=== PATIENT | female | born 1965 | race Caucasian/White ===

== ENCOUNTER 2016-12-17 09:12 | Emergency (ER) | payer BC, MEDICAID ==
[~2016-12-17] VITALS: Ht 165.1 cm; Wt 111.1 kg
[2016-12-17 09:12] VITALS: BP 123/79
== END 2016-12-17 10:15 | disposition home or self-care (01) ==
LOC: ER 09:15
DX: L73.9 Follicular disorder, unspecified (principal); E11.9 Type 2 diabetes mellitus without complications; I10 Essential (primary) hypertension; K21.9 Gastro-esophageal reflux disease without esophagitis; Z88.5 Allergy status to narcotic agent; Z88.6 Allergy status to analgesic agent; Z88.8 Allergy status to other drugs, medicaments and biological substances
CPT/HCPCS: A4606; Z7610

== ENCOUNTER 2017-03-24 22:39 | Emergency (ER) | payer BC ==
[~2017-03-24] VITALS: Ht 165.1 cm; Wt 108.9 kg
--- NOTE | 2017-03-24 22:59 | NUR ---
PT CAME FROM HOME WITH C/O CP X'S 1 MONTH, PAIN IS INTERMITANT/STABBING/NON RADIATING, PT A/O X 4, BREATING EVEN/UNLABORED, SKIN WARM/DRY/INTACT,
[2017-03-24 23:51] LABS: BASOPHILS % (AUTO) 0.8 % (0.0-2.0); EOSINOPHILS # (AUTO) 0.2 /CMM (0.0-0.7); EOSINOPHILS % (AUTO) 3.7 % (0.0-6.0); HEMATOCRIT 39 % (33-45); HEMOGLOBIN 13.3 g/dL (11.5-14.8); LYMPHOCYTES # (AUTO) 2.8 /CMM (0.8-4.8); LYMPHOCYTES % (AUTO) 43.2 % (20.0-44.0); MEAN CORPUSCULAR HEMOGLOBIN 31 PG (26.0-33.0); MEAN CORPUSCULAR HGB CONC 34 g/dl (31.0-36.0); MEAN CORPUSCULAR VOLUME 91 fL (82-100); MONOCYTES # (AUTO) 0.5 /CMM (0.1-1.30); NEUTROPHILS # (AUTO) 2.9 /CMM (1.8-8.9); NEUTROPHILS % (AUTO) 44.3 % (43.0-81.0); PLATELET COUNT (AUTO) 251 /CMM (150-450); RDW COEFFICIENT OF VARIATION 13.1 (11.5-15.0); RED BLOOD CELL COUNT(AUTO) 4.23 MIL/uL (4.0-5.2); WHITE BLOOD COUNT (AUTO) 6.5 K/uL (4.3-11.0)
[2017-03-25 00:04] LABS: CALCIUM, SERUM 9.1 mg/dL (8.5-10.1); CARBON DIOXIDE 27 mmol/L (21-32); CHLORIDE 102 mmol/L (98-107); CREATININE 0.9 mg/dL (0.6-1.3); GLUCOSE 151 mg/dL (74-106); POTASSIUM 3.6 mmol/L (3.5-5.1); SODIUM SERUM 138 mmol/L (136-145); UREA NITROGEN, BLOOD 17 mg/dL (7-18)
--- NOTE | 2017-03-25 00:05 | NUR ---
PT LYING IN BED, BREATHING UNLABORED, NAD NOTED, NO C/O PAIN AT THIS TIME
[2017-03-25 00:10] LABS: TROPONIN I < 0.017 ng/mL (0.00-0.056)
[2017-03-25 00:17] LABS: INR 0.92 (0.87-1.13); PROTHROMBIN TIME 9.6 SECS (9.5-12.7)
[2017-03-25 00:46] LABS: D-DIMER 2.04 mg/L(FEU (0.17-0.50)
[2017-03-25] MEDS ORDERED: CT SWABBABLE VALVE TRANS SET 1 EA INFUS.SET MC ONE (01:15)
[2017-03-25] MEDS ORDERED: IOHEXOL-350 100 ML VIAL IV ONE (01:15)
[2017-03-25] MEDS ORDERED: IV NS 0.9% 250 ML IV ONE (01:15)
--- NOTE | 2017-03-25 02:12 | NUR ---
PT SITTING IN BED, NAD NOTED, WAITING FOR ER MD TO REASSESS
[2017-03-25 03:16] VITALS: BP 128/87
== END 2017-03-25 03:17 | disposition home or self-care (01) ==
LOC: ER 22:41
DX: R07.9 Chest pain, unspecified (principal); E11.9 Type 2 diabetes mellitus without complications; I10 Essential (primary) hypertension; K21.9 Gastro-esophageal reflux disease without esophagitis; Z88.5 Allergy status to narcotic agent; Z90.49 Acquired absence of other specified parts of digestive tract; Z88.6 Allergy status to analgesic agent; Z88.8 Allergy status to other drugs, medicaments and biological substances
CPT/HCPCS: 36415; 71045; 71275; 80048; 84484; 84703; 85025; 85378; 85730; 93005; 99285; A4606; J7050; Q9967; Z7610

== ENCOUNTER 2017-03-26 21:53 | Emergency (ER) | payer BC ==
[~2017-03-26] VITALS: Ht 165.1 cm; Wt 108.4 kg
[2017-03-26 22:38] VITALS: BP 139/89
== END 2017-03-27 02:55 | disposition home or self-care (01) ==
LOC: ER 21:55
DX: R07.89 Other chest pain (principal); E11.9 Type 2 diabetes mellitus without complications; F41.9 Anxiety disorder, unspecified; I10 Essential (primary) hypertension; K21.9 Gastro-esophageal reflux disease without esophagitis; Z88.5 Allergy status to narcotic agent; Z88.6 Allergy status to analgesic agent; Z88.8 Allergy status to other drugs, medicaments and biological substances
CPT/HCPCS: 93005; 99283; A4606; J7030; Z7610

== ENCOUNTER 2019-10-10 10:33 | Emergency (ER) | payer BC ==
[~2019-10-10] VITALS: Ht 165.1 cm; Wt 113.4 kg
--- NOTE | 2019-10-10 10:47 | NUR ---
dr hunt at bedside for eval.
--- NOTE | 2019-10-10 10:50 | NUR ---
iv line started blood drawn and sent to lab.
[2019-10-10 10:56] LABS: BASOPHILS % (AUTO) 0.8 % (0.0-2.0); EOSINOPHILS % (AUTO) 2.8 % (0.0-6.0); HEMATOCRIT 44 % (33-45); HEMOGLOBIN 14.7 g/dL (11.5-14.8); LYMPHOCYTES # (AUTO) 1.6 /CMM (0.8-4.8); LYMPHOCYTES % (AUTO) 37.4 % (20.0-44.0); MEAN CORPUSCULAR HGB CONC 34 g/dl (31.0-36.0); MEAN CORPUSCULAR VOLUME 93 fL (82-100); MONOCYTES # (AUTO) 0.6 /CMM (0.1-1.30); MONOCYTES % (AUTO) 12.9 % (2.0-12.0); NEUTROPHILS % (AUTO) 46.1 % (43.0-81.0); PLATELET COUNT (AUTO) 231 /CMM (150-450); RED BLOOD CELL COUNT(AUTO) 4.73 MIL/uL (4.0-5.2); WHITE BLOOD COUNT (AUTO) 4.4 K/uL (4.3-11.0)
[2019-10-10 10:57] LABS: BILIRUBIN,URINE SMALL (NEGATIVE); BLOOD, URINE Small Ery/uL (NEGATIVE); COLOR,URINE Yellow (YELLOW); KETONES,URINE Negative (NEGATIVE); LEUKOCYTE ESTERASE ,URINE Small (NEGATIVE); NITRITE, URINE Negative (NEGATIVE); PH,URINE 5.5 (5.0-8.0); PROTEIN,URINE Negative (NEGATIVE); UGLUCOSE Negative (NEGATIVE); UROBILINOGEN,URINE 0.2 EU/dL (0.2)
[2019-10-10 10:59] LABS: APPEARANCE,URINE HAZY (CLEAR)
--- NOTE | 2019-10-10 11:01 | NUR ---
pt to radiology for abdominal ct scan via [facility].
[2019-10-10 11:15] LABS: ALBUMIN 3.9 g/dL (3.4-5.0); BILIRUBIN,DIRECT 0.1 mg/dL (0.0-0.2); BILIRUBIN,TOTAL 0.5 mg/dL (0.2-1.0); CALCIUM, SERUM 8.6 mg/dL (8.5-10.1); CREATININE 0.8 mg/dL (0.6-1.3); POTASSIUM 4.5 mmol/L (3.5-5.1); TOTAL PROTEIN, SERUM 9.3 g/dL (6.4-8.2)
[2019-10-10 11:28] LABS: BACTERIA,URINE Few /HPF (None Seen); SQUAMOUS EPITHELIAL CELL,UR Few /HPF (None Seen)
--- NOTE | 2019-10-10 11:58 | NUR ---
Patient discharged to home in stable condition. Written and verbal after care instructions given. Patient verbalizes understanding of instruction.IV removed. Catheter intact and site benign. Pressure and 4x4 applied to site. No bleeding noted. pt ambulatory with a steady gait
[2019-10-10 12:00] VITALS: BP 153/90
== END 2019-10-10 12:00 | disposition home or self-care (01) ==
LOC: ER 10:36
DX: N39.0 Urinary tract infection, site not specified (principal); I10 Essential (primary) hypertension; K21.9 Gastro-esophageal reflux disease without esophagitis; E11.9 Type 2 diabetes mellitus without complications; Z90.49 Acquired absence of other specified parts of digestive tract; Z98.890 Other specified postprocedural states; Z88.6 Allergy status to analgesic agent; Z88.5 Allergy status to narcotic agent; Z88.8 Allergy status to other drugs, medicaments and biological substances
CPT/HCPCS: 36415; 80048-TC; 80076-TC; 81000-TC; 83690-TC; 85025-TC; 87086-TC

== ENCOUNTER 2020-03-01 07:44 | Inpatient (IN) | payer BC ==
[~2020-03-01] VITALS: Ht 165.1 cm; Wt 112.9 kg
[2020-03-01] MEDS ORDERED: CEFTRIAXONE 1GM BAG (ER ONLY) 50 ML IV ONE ×2 (08:00→08:14)
[2020-03-01] MEDS ORDERED: AZITHROMYCIN 500 MG in IV D5W 250 ML IV ONE (08:00)
[2020-03-01] MEDS ORDERED: DEXAMETHASONE SOD PHOSPHATE 10 MG/ML VIAL IV ONE (08:00)
--- NOTE | 2020-03-01 08:00 | NUR ---
BIB SELF FROM HOME, C/O LOSS OF TASTE AND SMELL, HEADACHE, BODYACHE X8 DAYS - COUGH. VS CHECKED. AWAITING MD YING. IV ACCESS STARETD. BLOOD DRAW DONE.
[2020-03-01] MEDS ORDERED: SIMV-46 PO (08:14)
[2020-03-01] MEDS ORDERED: BENA10TA74 PO (08:14)
[2020-03-01] MEDS ORDERED: METF-442 PO (08:14)
[2020-03-01] MEDS ORDERED: OMEP20TA5 PO (08:14)
[2020-03-01] MEDS ORDERED: DEXAMETHASONE SOD PHOSPHATE 10 MG/ML VIAL ONE (08:15)
[2020-03-01 08:39] LABS: BASOPHILS % (AUTO) 0.3 % (0.0-2.0); EOSINOPHILS % (AUTO) 0.1 % (0.0-6.0); HEMATOCRIT 43 % (33-45); HEMOGLOBIN 14.4 g/dL (11.5-14.8); LYMPHOCYTES # (AUTO) 1.5 /CMM (0.8-4.8); LYMPHOCYTES % (AUTO) 27.2 % (20.0-44.0); MEAN CORPUSCULAR HGB CONC 34 g/dl (31.0-36.0); MEAN CORPUSCULAR VOLUME 92 fL (82-100); MONOCYTES # (AUTO) 0.4 /CMM (0.1-1.30); MONOCYTES % (AUTO) 7.1 % (2.0-12.0); NEUTROPHILS # (AUTO) 3.6 /CMM (1.8-8.9); NEUTROPHILS % (AUTO) 65.3 % (43.0-81.0); PLATELET COUNT (AUTO) 172 /CMM (150-450); RED BLOOD CELL COUNT(AUTO) 4.64 MIL/uL (4.0-5.2); WHITE BLOOD COUNT (AUTO) 5.6 K/uL (4.3-11.0)
[2020-03-01 08:45] LABS: CALCIUM, SERUM 8.7 mg/dL (8.5-10.1); CARBON DIOXIDE 25 mmol/L (21-32); CHLORIDE 99 mmol/L (98-107); CREATININE 0.9 mg/dL (0.6-1.3); GLUCOSE 143 mg/dL (74-106); POTASSIUM 3.8 mmol/L (3.5-5.1); SODIUM SERUM 135 mmol/L (136-145); UREA NITROGEN, BLOOD 9 mg/dL (7-18)
[2020-03-01 08:57] LABS: ALANINE AMINOTRANSFERASE 167 U/L (12-78); ALBUMIN 3.5 g/dL (3.4-5.0); ALKALINE PHOSPHATASE 54 U/L (46-116); ASPARTATE AMINOTRANSFERASE 111 U/L (15-37); B-TYPE NATRIURETIC PEPTIDE 31 PG/ML (0-125); BILIRUBIN,TOTAL 0.6 mg/dL (0.2-1.0); TOTAL PROTEIN, SERUM 8.8 g/dL (6.4-8.2)
--- NOTE | 2020-03-01 09:00 | NUR ---
SPOKE TO SYDNIE OF [facility]. LAB RESULTS STILL INCOMPLETE. CALL [phone] ONCE ALL RESULTED.
[2020-03-01 09:01] LABS: D-DIMER 2.87 mg/L(FEU (0.17-0.50)
--- NOTE | 2020-03-01 09:12 | NUR ---
MOVE SHEET SUBMITTED AND CALLED FOR TELE BED
[2020-03-01 09:23] LABS: CREATINE KINASE, TOTAL 141 U/L (26-192); FERRITIN 655 ng/mL (8-388)
[2020-03-01 09:27] LABS: C-REACTIVE PROTEIN 6.1 mg/dL (0.0-0.9)
--- NOTE | 2020-03-01 09:52 | NUR ---
covid and influenza swab done sent to lab
[2020-03-01] MEDS ORDERED: PANTOPRAZOLE 40 MG TABLET.DR PO ONE (20:00)
--- NOTE | 2020-03-01 22:00 | NUR ---
REPORT GIVEN TO KATHRYN SOLO FOR ADILENE
--- NOTE | 2020-03-01 22:41 | NUR ---
PATIENT TAKEN UP TO ASSIGNED ROOM FOR ADILENE.
[2020-03-01 22:45] VITALS: BP 129/70
[2020-03-02] VITALS: BP 124/76
[2020-03-02] MEDS ORDERED: ACETAMINOPHEN 325 MG TABLET PO PRN (00:30)
[2020-03-02] MEDS ORDERED: Z GUARD REMEDY 2 OZ OINT TP PRN (00:30)
[2020-03-02] MEDS ORDERED: ONDANSETRON HCL/PF 4 MG/2 ML VIAL IVP PRN (00:30)
[2020-03-02] MEDS ORDERED: DEXTROSE 50%-WATER 50 ML DISP.SYRIN IV PRN (00:30)
[2020-03-02] MEDS: SIMVASTATIN 20 MG TABLET PO SCH ×2 (01:12→22:00)
[2020-03-02] MEDS: ENOXAPARIN SODIUM 40 MG/0.4 ML DISP.SYRIN SQ SCH ×2 (01:13→12:24)
--- NOTE | 2020-03-02 02:00 | NUR ---
PATIENT CAME FROM ER AT 2243,AWAKE, A/O X4, NO S/S OF DISTRESS NOTED. NO COMPLAIN OF PAIN. AMBULATORY. CALL LIGHT WITHIN REACH. BED IN LOWEST AND LOCKED POSITION. WITH O2 AT 2L/MIN. NASAL CANNULA. WITH HOME MEDS PLACED IN THE ENVELOPE AND WILL SENT TO THE PHARMACY,WILL ENDORSE LATER TODAY TO THE NEST SHIFT RN.
[2020-03-02 04:00] VITALS: BP 113/76
[2020-03-02] MEDS ORDERED: PANTOPRAZOLE 40 MG TABLET.DR PO ONE (05:26)
--- NOTE | 2020-03-02 06:00 | NUR ---
GUT DROPPER CLOSING NOTES: PATIENT IN BED, AWAKE, A/O X4. NO S/S OF DISTRESS NOTED. NO COMPLAIN OF PAIN. CALL LIGHT WITHIN REACH. BED IN LOWEST AND LOCKED POSITION.AMBULATORY.
[2020-03-02] MEDS: BLOOD SUGAR DIAGNOSTIC 1 EACH STRIP VI SCH ×4 (07:08→22:00)
[2020-03-02] MEDS: INSULIN REGULAR, HUMAN 100 UNIT/ML 3 ML VIAL SQ PRN ×3 (07:10→17:16)
--- NOTE | 2020-03-02 07:40 | NUR ---
INTERN ARCHITECT NOTES PATIENT RECEIVED IN BED, ALERT AND ORIENTED X 4, MAINLY SLOVAK SPEAKING. ON NASAL CANNULA, WITH EVEN NON-LABORED BREATHING, AND NO SOB NOTED AT THIS TIME. ON FOOD SERVICE ORDER CLERK SINUS AZIZA 50'S. SKIN WARM AND DRY TO TOUCH, IV ACCESS INTACT AND PATENT. PATIENT PRESENTING WITH NO PAIN OR DISCOMFORT AT THIS TIME. SAFETY PRECAUTIONS IMPLEMENTED WITH BED LOCKED, BED IN THE LOWEST POSITION, BED ALARM ON, BILATERAL SIDE RAILS UP, AND CALL LIGHT WITHIN EASY REACH OF PATENT. WILL CONTINUE TO MONITOR.
[2020-03-02 08:00] VITALS: BP 113/68
[2020-03-02] MEDS: CEFTRIAXONE 1 G in IV D5W 50 ML IV SCH (08:15)
[2020-03-02] MEDS: BENAZEPRIL HCL 10 MG TABLET PO SCH (09:25)
[2020-03-02] MEDS: DEXAMETHASONE SOD PHOSPHATE 10 MG/ML VIAL IV SCH (09:25)
[2020-03-02] MEDS: AZITHROMYCIN 500 MG in IV D5W 250 ML IV SCH (09:26)
[2020-03-02 12:00] VITALS: BP 108/57
[2020-03-02 16:00] VITALS: BP 110/65
--- NOTE | 2020-03-02 18:45 | NUR ---
Primary language is Surinamese. Alert and oriented, lives at home with her daughter in [place]. She was ambulatory and independent with adl's prior to admission. Has good family support. Her daughter will provide ride when discharge. Pcp is Dr. Jericho Cabral in [place]. Addendum: 03/02/20 at 1846 by LINDY AGUILAR RN Amended: Links added.
--- NOTE | 2020-03-02 18:46 | NUR ---
FOREIGN EXCHANGE POSITION CLERK NOTES PATIENT IN BED ALERT AND ORIENTED X 4, MAINLY GEORGIAN SPEAKING. ON NASAL CANNULA, 5 LITERS, DUE TO PATIENT COMPLAINING OF SHORTNESS OF BREATH, O2 SATURATION 93%. ON PARK ATTENDANT SINUS RHYTHM, 62. PATIENT SKIN KEPT CLEAN, WARM AND DRY TO TOUCH, IV ACCESS INTACT AND PATENT. PATIENT PRESENTING WITH NO PAIN OR DISCOMFORT AT THIS TIME. MET ALL OF PATIENT'S NEEDS. SAFETY PRECAUTIONS IMPLEMENTED WITH BED LOCKED, BED IN THE LOWEST POSITION, BED ALARM ON, BILATERAL SIDE RAILS UP, AND CALL LIGHT WITHIN EASY REACH OF PATENT. WILL ENDORSE PLAN OF CARE TO UPCOMING RN.
--- NOTE | 2020-03-02 19:30 | NUR ---
BARREL FILLER OPENING NOTE PATIENT ON ISOLATION FOR COVID. PATIENT IN BED. A/OX4. ON OXYGEN 5L/MIN VIA NASAL CANNULA. RESPIRATIONS ARE EVEN AND UNLABORED. NO S/S SOB NOTED. NO C/O OR S/S PAIN NOTED. EXTERNAL TELE MONITOR READS SINUS AZIZA 55. IN NO APPARENT DISTRESS. IV ACCESS IN RIGHT HAND #18 PATENT AND SALINE LOCKED. EDUCATED PATIENT ON ANTIBIOTICS, LOVENOX AND ACCUCHECK. BED IS LOW AND LOCKED, HOB ELEVATED IN SEMI FOWLERS, SIDE RAILS UP X2, CALL LIGHT WITHIN REACH. WILL CONTINUE TO MONITOR.
[2020-03-02 20:00] VITALS: BP 105/59
[2020-03-02] MEDS: *INSULIN REGULAR(HUMULIN R)HUM 100 UNIT/ML VIAL SQ PRN (22:07)
[2020-03-03] VITALS (7 sets, daily range): BP systolic 95–117; BP diastolic 61–76
[2020-03-03] MEDS: ENOXAPARIN SODIUM 40 MG/0.4 ML DISP.SYRIN SQ SCH ×2 (01:00→13:51)
--- NOTE | 2020-03-03 01:22 | NUR ---
telesales specialist note informed dr. morrow patient states that she has not had a period in 3 years but has vaginal bleeding now and some pelvic pain. lovenox is scheduled now at 0100, should i give. dr. morrow ordered hold lovenox and endorse to next shift to inform day provider. read back noted and carried out. will continue to monitor.
[2020-03-03 06:27] LABS: ABG BASE EXCESS -4.5 mmol/L; ABG OXYGEN SATURATION 84.7 % (92.0-98.5); ABG PCO2 34.1 mmHg (35.0-45.0); ABG PO2 49.5 mmHg (75.0-100.0); AaDO2 225.4 mmHg; COHb 0.2 % (0.5-1.5); MetHb 0.1 % (0.0-1.5); O2Hb 84.4 % (94.0-97.0); SITE, ABG Right Radial; VENT MODE, BG 6LPM
--- NOTE | 2020-03-03 06:37 | NUR ---
DISPATCHER SERVICE NOTE INFORMED JAMIR LOPEZ AGRONOMY TEACHER OF CRITICAL RESULTS OF ABG. O2 SAT 84.7% AND PO2 49.5. MD ORDER PLACE PATIENT ON 15L NONREBREATHER. ORDER READ BACK NOTED AND CARRIED OUT. WILL CONTINUE TO MONITOR .
[2020-03-03] MEDS: BLOOD SUGAR DIAGNOSTIC 1 EACH STRIP VI SCH ×4 (06:58→22:10)
--- NOTE | 2020-03-03 07:10 | NUR ---
SPINNER IRON OPENING NOTES RECEIVED PT AWAKE IN BED AT THIS TIME. PT AOX4. PT ABLE TO MAKE NEEDS KNOWN. NO SOB NOTED, NO S/S OF ANY APPARENT DISTRESS NOTED. NO C/O PAIN AT THIS TIME. RESPIRATIONS ARE EVEN AND UNLABORED WITH EQUAL RISE AND FALL IN CHEST. PT NOTED ON 15LPM NON REBREATHER. IV ACCESS NOTED IN RIGHT HAND G#18, INTACT, PATENT AND FLUSHING WELL. PT NOTED ON 5LPM OXYGEN VIA NC. SAFETY PRECAUTION IN PLACE AND MAINTAINED AT ALL TIMES. BED IN LOWEST LOCKED POSITION, HOB ELEVATED, SIDE RAILS UP X 2, CALL LIGHT AND TABLE WITHIN REACH. WILL CONTINUE TO MONITOR
[2020-03-03 07:48] LABS: BASOPHILS % (AUTO) 0.1 % (0.0-2.0); HEMATOCRIT 42 % (33-45); HEMOGLOBIN 14.1 g/dL (11.5-14.8); LYMPHOCYTES # (AUTO) 1.3 /CMM (0.8-4.8); LYMPHOCYTES % (AUTO) 11.2 % (20.0-44.0); MEAN CORPUSCULAR HGB CONC 34 g/dl (31.0-36.0); MEAN CORPUSCULAR VOLUME 91 fL (82-100); MONOCYTES # (AUTO) 0.6 /CMM (0.1-1.30); MONOCYTES % (AUTO) 5.2 % (2.0-12.0); NEUTROPHILS # (AUTO) 9.4 /CMM (1.8-8.9); NEUTROPHILS % (AUTO) 83.5 % (43.0-81.0); PLATELET COUNT (AUTO) 226 /CMM (150-450); RED BLOOD CELL COUNT(AUTO) 4.56 MIL/uL (4.0-5.2); WHITE BLOOD COUNT (AUTO) 11.3 K/uL (4.3-11.0)
--- NOTE | 2020-03-03 08:07 | NUR ---
PATIENT INTAKE COORDINATOR CLOSING NOTE ISOLATION FOR COVID. PATIENT RESTING IN BED. A/OX4. ON OXYGEN 15L/MIN VIA NONREBREATHER. NO RESP DISTRESS. INCREASE D/T ABG RESULTS. EXTERNAL TELE MONITOR READS SINUS AZIZA. NO DISTRESS. IV ACCESS MAINTAINED IN RIGHT HAND #18. BED REMAINS LOW AND LOCKED, HOB ELEVATED IN SEMI FOWLERS, SIDE RAILS UP X2, CALL LIGHT WITHIN REACH. WILL ENDORSE TO NEXT SHIFT
[2020-03-03] MEDS: CEFTRIAXONE 1 G in IV D5W 50 ML IV SCH (08:36)
[2020-03-03 08:52] LABS: ALBUMIN 3.2 g/dL (3.4-5.0); BILIRUBIN,TOTAL 0.4 mg/dL (0.2-1.0); CALCIUM, SERUM 8.7 mg/dL (8.5-10.1); CREATININE 0.8 mg/dL (0.6-1.3); MAGNESIUM 2.5 mg/dL (1.8-2.4); PHOSPHORUS 4.1 mg/dL (2.5-4.9); POTASSIUM 3.8 mmol/L (3.5-5.1); TOTAL PROTEIN, SERUM 8.3 g/dL (6.4-8.2)
[2020-03-03] MEDS: BENAZEPRIL HCL 10 MG TABLET PO SCH (09:00)
[2020-03-03] MEDS: AZITHROMYCIN 500 MG in IV D5W 250 ML IV SCH (09:08)
[2020-03-03] MEDS: DEXAMETHASONE SOD PHOSPHATE 10 MG/ML VIAL IV SCH (09:09)
[2020-03-03 09:11] LABS: THYROID STIMULATING HORMONE 1.111 uIU/mL (0.358-3.74)
[2020-03-03] MEDS: INSULIN REGULAR, HUMAN 100 UNIT/ML 3 ML VIAL SQ PRN ×2 (12:25→17:14)
[2020-03-03] MEDS ORDERED: REMDESIVIR (CHARGED) 200 MG, *LOADING DOSE 1 EA in IV NS 0.9% 210 ML IV ONE (18:30)
--- NOTE | 2020-03-03 19:02 | NUR ---
ADMINISTRATION PHYSICIAN CLOSING NOTES PT AWAKE IN BED AT THIS TIME. PT REMAINED STABLE THROUGHOUT SHIFT. ALL CARE, NEED, MEDICATIONS AND TREATMENT ADMINISTERED ANTICIPATED PER ORDER. PT KEPT CLEAN AND DRY. SAFETY PRECAUTION IN PLACE AND MAINTAINED AT ALL TIMES. BED IN LOWEST LOCKED POSITION, HOB ELEVATED, SIDE RAILS UP X 2, CALL LIGHT AND TABLE WITHIN REACH. WILL ENDORSE TO UTILITY BILL COMPLAINTS INVESTIGATOR NURSE FOR ADILENE
--- NOTE | 2020-03-03 19:45 | NUR ---
WILDLIFE CONTROL OPERATOR NOTES RECEIVED ON BED,ON HIGH FOWLERS POSITION,ON 15L NRM TO KEEP O2 SAT ABOVE 90%.SALINE LOCK RIGHT HAND INTACT AND PATENT.DENIES PAIN.CALL.ISOLATION FOR COVID + PCR AND RAPID.CALL LIGHT IN REACH,NEEDS ANTICIPATED.
--- NOTE | 2020-03-03 19:58 | NUR ---
TRAINING DESIGNER NOTES DUE REMDESIVIR IV HUNG X ONE DOSE
[2020-03-03] MEDS: SIMVASTATIN 20 MG TABLET PO SCH (21:38)
--- NOTE | 2020-03-03 22:00 | NUR ---
ELECTRIC UTILITY LINEWORKER NOTES ACCU-CHECK BLOOD SUGAR CHECK 163,COVERED WITH HUMULIN R 3 UNITS PER SLIDING SCALE.
[2020-03-03] MEDS: *INSULIN REGULAR(HUMULIN R)HUM 100 UNIT/ML VIAL SQ PRN (22:20)
[2020-03-04] VITALS: BP_SYST 111; BP_DIAS 72; BP_DIAS 77
[2020-03-04] MEDS: ENOXAPARIN SODIUM 40 MG/0.4 ML DISP.SYRIN SQ SCH ×2 (01:41→13:00)
[2020-03-04 04:00] VITALS: BP 131/77
[2020-03-04 04:33] VITALS: BP 131/77
--- NOTE | 2020-03-04 05:30 | NUR ---
ABORIGINAL EDUCATION TEACHER NOTES ACCU-CHECK BLOOD SUGAR CHECK 133,COVERED WITH HUMULIN R 2 UNITS PER SLIDING SCALE.
[2020-03-04] MEDS: BLOOD SUGAR DIAGNOSTIC 1 EACH STRIP VI SCH ×4 (05:36→22:27)
[2020-03-04] MEDS: INSULIN REGULAR, HUMAN 100 UNIT/ML 3 ML VIAL SQ PRN ×3 (05:44→18:10)
--- NOTE | 2020-03-04 06:38 | NUR ---
BUTTON GRADER NOTES ON BED AWAKE,NO SOB,ALL DUE MEDS ADMINISTERED,IN NO ACUTE DISTRESS,AFEBRILE.
[2020-03-04 06:53] LABS: BASOPHILS % (AUTO) 0.1 % (0.0-2.0); HEMATOCRIT 39 % (33-45); HEMOGLOBIN 13.2 g/dL (11.5-14.8); LYMPHOCYTES # (AUTO) 1.1 /CMM (0.8-4.8); LYMPHOCYTES % (AUTO) 11.3 % (20.0-44.0); MEAN CORPUSCULAR HGB CONC 34 g/dl (31.0-36.0); MEAN CORPUSCULAR VOLUME 90 fL (82-100); MONOCYTES # (AUTO) 0.7 /CMM (0.1-1.30); MONOCYTES % (AUTO) 7.5 % (2.0-12.0); NEUTROPHILS # (AUTO) 7.9 /CMM (1.8-8.9); NEUTROPHILS % (AUTO) 81.1 % (43.0-81.0); PLATELET COUNT (AUTO) 233 /CMM (150-450); RED BLOOD CELL COUNT(AUTO) 4.31 MIL/uL (4.0-5.2); WHITE BLOOD COUNT (AUTO) 9.8 K/uL (4.3-11.0)
--- NOTE | 2020-03-04 07:10 | NUR ---
RN NOTES RECEIVED PATENT IN BED WITH 15L/MIN ON NON RE-BREATHER MASK. A& O X4. FREQUENT VISUAL CHECK DONE. REMAINS STABLE AT THIS TIME.
[2020-03-04 07:57] LABS: ALBUMIN 2.8 g/dL (3.4-5.0); BILIRUBIN,DIRECT 0.2 mg/dL (0.0-0.2); BILIRUBIN,TOTAL 0.5 mg/dL (0.2-1.0); CALCIUM, SERUM 8.3 mg/dL (8.5-10.1); CREATININE 0.7 mg/dL (0.6-1.3); POTASSIUM 3.6 mmol/L (3.5-5.1); TOTAL PROTEIN, SERUM 7.5 g/dL (6.4-8.2)
[2020-03-04 08:00] VITALS: BP 115/70
[2020-03-04] MEDS: DEXAMETHASONE SOD PHOSPHATE 10 MG/ML VIAL IV SCH (10:10)
[2020-03-04] MEDS: BENAZEPRIL HCL 10 MG TABLET PO SCH (10:10)
[2020-03-04] MEDS ORDERED: AZITHROMYCIN 500 MG in IV D5W 250 ML IV SCH (10:30)
[2020-03-04] MEDS: CEFTRIAXONE 1 G in IV D5W 50 ML IV SCH (10:59)
[2020-03-04] MEDS: AZITHROMYCIN 500 MG in IV D5W 250 ML IV SCH (11:00)
[2020-03-04] MEDS: *INSULIN REGULAR(HUMULIN R)HUM 100 UNIT/ML VIAL SQ PRN ×2 (15:00→22:31)
[2020-03-04 16:00] VITALS: BP 117/74
[2020-03-04] MEDS: REMDESIVIR (CHARGED) 100 MG in IV NS 0.9% 230 ML IV SCH (18:43)
--- NOTE | 2020-03-04 19:20 | NUR ---
RN NOTES PATIENT RESTING COMFORTABLY IN BED TALKING TO DTR VIA FACETIME ON PHONE. TITRATED PATIENT THROUGHOUT THE SHIFT AND BECCA ROOM AIR WITH SPO2 94-96% WITHOUT S/S OF RESPIRATORY DISTRESS. RIGHT FA & RT WRIST IV ACCESS INTACT AND PATENT. AMBULATES IN ROOM WITH STEADY GAIT. S/P REMDESIVIR WITHOUT S/S OF COMPLICATIONS.IN NO APPARENT DISTRESS. CALL LIGHT WITHIN REACH.
--- NOTE | 2020-03-04 19:40 | NUR ---
PIGMENT PRESSER OPENING NOTES RECEIVED PATIENT RESTING IN BED COMFORTABLY; A/OX4, MAURITANIAN SPEAKING; BREATHING EVEN AND UNLABORED; NO APPARENT DISTRESS NOTED AT THIS TIME; NO SOB NOTED; TOLERATING ROOM AIR WELL, SATTING 94-98%; TELE MONITOR READS SINUS AZIZA-NSR; R HAND #22, R FA #20 INTACT AND PATENT, FLUSHING WELL; ISOLATION PRECAUTIONS MAINTAINED; SAFETY PRECAUTIONS IMPLEMENTED; BED LOCKED IN LOW POSITION; SIDE RAILSX2; CALL LIGHT WITHIN REACH; WILL CONT PLAN OF CARE
[2020-03-04 20:00] VITALS: BP 108/43
[2020-03-04] MEDS: SIMVASTATIN 20 MG TABLET PO SCH (22:21)
--- NOTE | 2020-03-04 23:45 | NUR ---
DESIGN CHECKER NOTES PATIENT REQUESTED FOR IV TO BE DISCONNECTED FROM HER THROUGHOUT NIGHT SO SHE WILL BE ABLE TO USE RESTROOM PRN; PATIENT ALSO REPORTED SHE STILL HAS HER MENSTRUAL CYCLE; DENIES PAIN OR DISCOMFORT; NO APPARENT DISTRESS NOTED AT THIS TIME; WILL CONT PLAN OF CARE
[2020-03-05] VITALS: BP_SYST 115; BP_SYST 129; BP_DIAS 68; BP_DIAS 72
[2020-03-05] MEDS: ENOXAPARIN SODIUM 40 MG/0.4 ML DISP.SYRIN SQ SCH ×2 (00:04→12:33)
--- NOTE | 2020-03-05 03:23 | NUR ---
DEPUTY BRAND INSPECTOR NOTES PATIENT HR 37, PATIENT REPORTED HER PCP MENTIONED SHE DOES GET BRADYCARDIA WHEN IN DEEP SLEEP; ONCE AWAKE, PATIENT HR 47, PATIENT INFORMED WE WILL HAVE TO MONITOR HER THROUGHOUT HOSPITALIZATION TO MAKE SURE SHE IS OKAY, PATIENT VERBALIZED UNDERSTANDING; WILL CONT PLAN OF CARE
[2020-03-05 04:00] VITALS: BP 103/62
[2020-03-05] MEDS: BLOOD SUGAR DIAGNOSTIC 1 EACH STRIP VI SCH ×4 (06:48→22:06)
[2020-03-05] MEDS: INSULIN REGULAR, HUMAN 100 UNIT/ML 3 ML VIAL SQ PRN ×3 (06:49→17:48)
--- NOTE | 2020-03-05 07:01 | NUR ---
HEAD ORTHOPEDIC TEAM PHYSICIAN CLOSING NOTES PATIENT RESTING IN BED COMFORTABLY; A/OX4, KHMER SPEAKING; BREATHING EVEN AND UNLABORED; NO SOB NOTED; TOLERATING ROOM AIR WELL; NO APPARENT DISTRESS NOTED AT THIS TIME; PATIENT DENIES PAIN; ABLE TO MAKE NEEDS KNOWN; TELE MONITOR READS SINUS AZIZA - SINUS RHTYHM; R HAND # 22, R FA #20 INTACT AND PATENT; ISOLATION PRECAUTIONS MAINTAINED; ALL NEEDS RENDERED; SAFETY PRECAUTIONS IMPLEMENTED; WILL ENDORSE ADILENE TO ONCOMING SHIFT
--- NOTE | 2020-03-05 07:50 | NUR ---
SOCIAL MEDIA MARKETING ANALYST OPENING NOTES RECEIVED PATIENT RESTING IN BED COMFORTABLY; A/OX4, GUAMANIAN SPEAKING; BREATHING EVEN AND UNLABORED; NO APPARENT DISTRESS NOTED AT THIS TIME; NO SOB NOTED; TOLERATING ROOM AIR WELL. R HAND #22, R FA #20 INTACT AND PATENT, FLUSHING WELL; ISOLATION PRECAUTIONS MAINTAINED; SAFETY PRECAUTIONS IMPLEMENTED; BED LOCKED IN LOW POSITION; SIDE RAILSX2; CALL LIGHT WITHIN REACH; WILL CONTINUE TO MONITOR.
[2020-03-05 08:00] VITALS: BP 94/54
[2020-03-05 08:22] LABS: HEMATOCRIT 39 % (33-45); HEMOGLOBIN 13.2 g/dL (11.5-14.8); LYMPHOCYTES # (AUTO) 1.3 /CMM (0.8-4.8); LYMPHOCYTES % (AUTO) 20.4 % (20.0-44.0); MEAN CORPUSCULAR HGB CONC 34 g/dl (31.0-36.0); MEAN CORPUSCULAR VOLUME 92 fL (82-100); MONOCYTES # (AUTO) 0.6 /CMM (0.1-1.30); MONOCYTES % (AUTO) 9.4 % (2.0-12.0); NEUTROPHILS # (AUTO) 4.6 /CMM (1.8-8.9); NEUTROPHILS % (AUTO) 70.2 % (43.0-81.0); PLATELET COUNT (AUTO) 252 /CMM (150-450); RED BLOOD CELL COUNT(AUTO) 4.26 MIL/uL (4.0-5.2); WHITE BLOOD COUNT (AUTO) 6.5 K/uL (4.3-11.0)
[2020-03-05 08:36] LABS: ALBUMIN 2.8 g/dL (3.4-5.0); BILIRUBIN,DIRECT 0.2 mg/dL (0.0-0.2); BILIRUBIN,TOTAL 0.5 mg/dL (0.2-1.0); CALCIUM, SERUM 8.1 mg/dL (8.5-10.1); CREATININE 0.7 mg/dL (0.6-1.3); POTASSIUM 3.8 mmol/L (3.5-5.1); TOTAL PROTEIN, SERUM 7.3 g/dL (6.4-8.2)
[2020-03-05] MEDS: BENAZEPRIL HCL 10 MG TABLET PO SCH (09:00)
[2020-03-05] MEDS: DEXAMETHASONE SOD PHOSPHATE 10 MG/ML VIAL IV SCH (09:47)
[2020-03-05] MEDS: AZITHROMYCIN 500 MG in IV D5W 250 ML IV SCH (11:13)
[2020-03-05] MEDS: CEFTRIAXONE 1 G in IV D5W 50 ML IV SCH (11:34)
[2020-03-05 16:00] VITALS: BP 120/78
[2020-03-05] MEDS: REMDESIVIR (CHARGED) 100 MG in IV NS 0.9% 230 ML IV SCH (18:16)
[2020-03-05 20:00] VITALS: BP 136/87
--- NOTE | 2020-03-05 20:41 | NUR ---
BUCKLE GLUER CLOSING NOTES PATIENT RESTING IN BED COMFORTABLY; A/OX4, MOHAWK SPEAKING; BREATHING EVEN AND UNLABORED; NO SOB NOTED; TOLERATING ROOM AIR WELL; NO APPARENT DISTRESS NOTED AT THIS TIME; PATIENT DENIES PAIN; R HAND # 22, R FA #20 INTACT AND PATENT; ISOLATION PRECAUTIONS MAINTAINED; ALL NEEDS RENDERED; SAFETY PRECAUTIONS IMPLEMENTED; WILL ENDORSE TO SCIENTIST ENGINEER FOR ADILENE.
[2020-03-05] MEDS: *INSULIN REGULAR(HUMULIN R)HUM 100 UNIT/ML VIAL SQ PRN (21:49)
[2020-03-05] MEDS ORDERED: CALCIUM CARBONATE 500 MG TAB.CHEW PO SCH (22:00)
[2020-03-05] MEDS: SIMVASTATIN 20 MG TABLET PO SCH (22:07)
[2020-03-06] VITALS: BP 129/74
[2020-03-06] MEDS: ENOXAPARIN SODIUM 40 MG/0.4 ML DISP.SYRIN SQ SCH ×2 (01:01→12:57)
[2020-03-06 04:00] VITALS: BP 135/78
[2020-03-06] MEDS: BLOOD SUGAR DIAGNOSTIC 1 EACH STRIP VI SCH ×4 (07:07→22:53)
[2020-03-06] MEDS: *INSULIN REGULAR(HUMULIN R)HUM 100 UNIT/ML VIAL SQ PRN ×2 (07:09→23:12)
[2020-03-06] MEDS ORDERED: OMEPRAZOLE 20 MG CAPSULE.DR PO SCH (07:30)
--- NOTE | 2020-03-06 07:30 | NUR ---
ms rn received on bed, awake,alert,oriented x4,not in any form of distress,respirations even and unlabored,no sob noted,lungs are clear,abdomen soft,positive bowel sounds,denies pain at this time, will monitor patient.
[2020-03-06 08:00] VITALS: BP 154/74
[2020-03-06 08:06] LABS: BASOPHILS % (AUTO) 0.1 % (0.0-2.0); HEMATOCRIT 39 % (33-45); HEMOGLOBIN 13.2 g/dL (11.5-14.8); LYMPHOCYTES % (AUTO) 26.3 % (20.0-44.0); MEAN CORPUSCULAR HGB CONC 34 g/dl (31.0-36.0); MEAN CORPUSCULAR VOLUME 91 fL (82-100); MONOCYTES # (AUTO) 0.7 /CMM (0.1-1.30); MONOCYTES % (AUTO) 9.2 % (2.0-12.0); NEUTROPHILS # (AUTO) 4.8 /CMM (1.8-8.9); NEUTROPHILS % (AUTO) 64.4 % (43.0-81.0); PLATELET COUNT (AUTO) 277 /CMM (150-450); RED BLOOD CELL COUNT(AUTO) 4.35 MIL/uL (4.0-5.2); WHITE BLOOD COUNT (AUTO) 7.5 K/uL (4.3-11.0)
[2020-03-06 08:34] LABS: ALBUMIN 2.8 g/dL (3.4-5.0); BILIRUBIN,DIRECT 0.2 mg/dL (0.0-0.2); BILIRUBIN,TOTAL 0.5 mg/dL (0.2-1.0); CALCIUM, SERUM 8.2 mg/dL (8.5-10.1); CREATININE 0.8 mg/dL (0.6-1.3); TOTAL PROTEIN, SERUM 7.2 g/dL (6.4-8.2)
--- NOTE | 2020-03-06 09:35 | NUR ---
ms godfrey breakfast served,due meds given,tolerated well.
[2020-03-06] MEDS: BENAZEPRIL HCL 10 MG TABLET PO SCH (09:43)
[2020-03-06] MEDS: DEXAMETHASONE SOD PHOSPHATE 10 MG/ML VIAL IV SCH (09:43)
[2020-03-06] MEDS: AZITHROMYCIN 500 MG in IV D5W 250 ML IV SCH (11:15)
[2020-03-06] MEDS: PANTOPRAZOLE 40 MG TABLET.DR PO SCH (11:15)
[2020-03-06] MEDS: CEFTRIAXONE 1 G in IV D5W 50 ML IV SCH (11:15)
[2020-03-06] MEDS: INSULIN REGULAR, HUMAN 100 UNIT/ML 3 ML VIAL SQ PRN ×2 (12:55→17:53)
[2020-03-06 16:00] VITALS: BP 133/69
--- NOTE | 2020-03-06 16:35 | NUR ---
ms rn inside room walking,all needs attended.
[2020-03-06] MEDS: REMDESIVIR (CHARGED) 100 MG in IV NS 0.9% 230 ML IV SCH (17:45)
--- NOTE | 2020-03-06 19:01 | NUR ---
ms rn on bed, no distress noted.
[2020-03-06 19:25] LABS: CALCIUM, SERUM 8.5 mg/dL (8.5-10.1); CREATININE 0.9 mg/dL (0.6-1.3)
[2020-03-06 20:00] VITALS: BP 134/88
--- NOTE | 2020-03-06 20:00 | NUR ---
rn note received pt in bed, a/a/o x4, pt has unlabored breathong no s/s of distress. safety measures in place.
[2020-03-06] MEDS: SIMVASTATIN 20 MG TABLET PO SCH (22:53)
[2020-03-07] MEDS: ENOXAPARIN SODIUM 40 MG/0.4 ML DISP.SYRIN SQ SCH ×2 (01:21→14:02)
[2020-03-07 06:55] LABS: BASOPHILS % (AUTO) 0.2 % (0.0-2.0); HEMATOCRIT 40 % (33-45); HEMOGLOBIN 13.6 g/dL (11.5-14.8); LYMPHOCYTES # (AUTO) 2.5 /CMM (0.8-4.8); LYMPHOCYTES % (AUTO) 31.3 % (20.0-44.0); MEAN CORPUSCULAR HGB CONC 34 g/dl (31.0-36.0); MEAN CORPUSCULAR VOLUME 91 fL (82-100); MONOCYTES # (AUTO) 0.7 /CMM (0.1-1.30); MONOCYTES % (AUTO) 8.6 % (2.0-12.0); NEUTROPHILS # (AUTO) 4.7 /CMM (1.8-8.9); NEUTROPHILS % (AUTO) 59.9 % (43.0-81.0); PLATELET COUNT (AUTO) 305 /CMM (150-450); RED BLOOD CELL COUNT(AUTO) 4.44 MIL/uL (4.0-5.2); WHITE BLOOD COUNT (AUTO) 7.9 K/uL (4.3-11.0)
[2020-03-07 07:15] LABS: ALBUMIN 2.9 g/dL (3.4-5.0); BILIRUBIN,DIRECT 0.2 mg/dL (0.0-0.2); BILIRUBIN,TOTAL 0.5 mg/dL (0.2-1.0); CALCIUM, SERUM 8.3 mg/dL (8.5-10.1); CREATININE 0.8 mg/dL (0.6-1.3); POTASSIUM 4.1 mmol/L (3.5-5.1); TOTAL PROTEIN, SERUM 7.3 g/dL (6.4-8.2)
--- NOTE | 2020-03-07 07:30 | NUR ---
rn note pt remained stable during my shift, report given to incoming shift for surya.
--- NOTE | 2020-03-07 07:30 | NUR ---
TELE/RN OPENING NOTE Patient resting in bed, A&O x 4, Malian speaking. No complaints of pain/discomfort at this time. Breathing even and non-labored on RA, no SOB noted. No cardiac distress noted, on tele monitor reading SB 54. IV access noted on LFA #22 g, patent and intact, and flushing well. Sensation and circulation from all peripheral extremities intact. Bed locked to its lowest position, side rails x 2 up, call light in hand. Will continue with current medical management.
[2020-03-07 08:00] VITALS: BP 106/53
[2020-03-07] MEDS: BENAZEPRIL HCL 10 MG TABLET PO SCH (09:00)
[2020-03-07] MEDS: BLOOD SUGAR DIAGNOSTIC 1 EACH STRIP VI SCH ×3 (09:17→17:36)
[2020-03-07] MEDS: DEXAMETHASONE SOD PHOSPHATE 10 MG/ML VIAL IV SCH (09:17)
[2020-03-07] MEDS: PANTOPRAZOLE 40 MG TABLET.DR PO SCH (09:19)
[2020-03-07] MEDS: INSULIN REGULAR, HUMAN 100 UNIT/ML 3 ML VIAL SQ PRN ×3 (09:25→17:44)
[2020-03-07 12:00] VITALS: BP 131/80
[2020-03-07] MEDS: CEFTRIAXONE 1 G in IV D5W 50 ML IV SCH (13:58)
[2020-03-07] MEDS: AZITHROMYCIN 500 MG in IV D5W 250 ML IV SCH (14:35)
[2020-03-07] MEDS: REMDESIVIR (CHARGED) 100 MG in IV NS 0.9% 230 ML IV SCH (17:37)
--- NOTE | 2020-03-07 18:30 | NUR ---
TELE/RN NOTE Patient's discharge prescription noted ASA 325 mg PO daily, case discussed with Randall FIBERGLASS BOAT PARTS FINISHER since patient is allergic to ASA. Randall FIBERGLASS BOAT PARTS FINISHER ordered the following discharge instructions: discontinue ASA 325 mg, make sure to ambulate frequently, drink plenty of fluids, and buy dai hose for circulation. Orders relayed to patient and patient's daughter, both verbalized understanding.
--- NOTE | 2020-03-07 19:30 | NUR ---
TELE/REFRACTORY MIXER NOTE Patient in bed, A&O x 4. All needs met and attended to. No complaints of pain/discomfort at this time. Breathing even and non-labored on RA, no SOB noted. No cardiac distress noted, on tele monitor reading SB 53. IV access removed on LFA #22g with catheter intact since patient will be picked up at 1999, placed clean dry dressing on top with tape. No s/s of bleeding, infiltration, or infection noted on site. Sensation and circulation from all peripheral extremities intact. Discussed discharge teaching to patient and daughter, answered all their questions to their satisfaction, both verbalized understanding. Fall precautions maintained. Will endorse to shift production associate nurse.
--- NOTE | 2020-03-07 20:35 | NUR ---
GRAIN FARMWORKERWEIGHER OPERATOR NOTES PATIENT DISCHARGED HOME IN STABLE CONDITION. TRANSPORTATION PROVIDED VIA [facility]. DISCHARGE INSTRUCTIONS COMPLETED BY DAY SHIFT RNKEILY. DISCHARGE PACKET GIVEN TO PATIENT; DAUGHTER AND PATIENT AWARE OF INSTRUCTIONS. IV LINE ON LEFT FA REMOVED; ID BAND REMOVED. ALL BELONGINGS WITH PATIENT. [facility] (DTR): [phone]
[2020-03-07 20:47] VITALS: BP 132/85
== END 2020-03-07 22:39 | disposition home or self-care (01) | DRG 137 ==
LOC: ER 07:46 → TELE2 21:36
PROVIDERS: ADMIT Nurse Practitioner Acute Care; ATTEND Nurse Practitioner Acute Care
PROC: XW033E5 Introduction of Remdesivir Anti-infective into Peripheral Vein, Percutaneous Approach, New Technology Group 5 (ICD-10-PCS; principal; 2020-03-03)
DX: U07.1 COVID-19 (principal); J12.89 Other viral pneumonia; K21.9 Gastro-esophageal reflux disease without esophagitis; E87.1 Hypo-osmolality and hyponatremia; D68.59 Other primary thrombophilia; E66.01 Morbid (severe) obesity due to excess calories; I25.10 Atherosclerotic heart disease of native coronary artery without angina pectoris; J96.01 Acute respiratory failure with hypoxia; Z68.41 Body mass index [BMI] 40.0-44.9, adult; I10 Essential (primary) hypertension; Z90.49 Acquired absence of other specified parts of digestive tract; K46.9 Unspecified abdominal hernia without obstruction or gangrene; Z98.890 Other specified postprocedural states; Z88.5 Allergy status to narcotic agent; Z88.8 Allergy status to other drugs, medicaments and biological substances; Z79.84 Long term (current) use of oral hypoglycemic drugs; I25.2 Old myocardial infarction; R74.01 Elevation of levels of liver transaminase levels; E86.1 Hypovolemia; E11.65 Type 2 diabetes mellitus with hyperglycemia; J15.9 Unspecified bacterial pneumonia; M19.90 Unspecified osteoarthritis, unspecified site; N17.0 Acute kidney failure with tubular necrosis
CPT/HCPCS: 36415; 36600; 71045-TC; 80048-TC; 80053-TC; 80061-TC; 80076-TC; 82550-TC; 82728-TC; 82962-TC; 83605-TC; 83615-TC; 83735-TC; 83880; 84100-TC; 84443-TC; 84484-TC; 85025-TC; 85378-TC; 85385-TC; 85610-TC; 85730-TC; 86140-TC; 87040-TC; 87081-TC; A4216; C9803; G0378; J0456; J0696; J1100; J1650; J1815; J7040; J7050; J7060; U0003

== ENCOUNTER 2020-03-16 23:52 | Emergency (ER) | payer BC ==
[~2020-03-16] VITALS: Ht 165.1 cm; Wt 110.7 kg
[~2020-03-16 23:52] MED LIST: BENA10TA74 PO; METF-442 PO; OMEP20TA5 PO; SIMV-46 PO
[2020-03-17 00:05] VITALS: BP 123/93
--- NOTE | 2020-03-17 00:13 | NUR ---
PT AAOX4. BIBDAUGHTER C/O DIFFICULTY WALKING, BILATERAL KNEE PAIN X2 DAYS. AWAITING FOR MD FOR EVAL AND ORDERS.
[2020-03-17] MEDS ORDERED: HYDROCODONE/APAP 10/325MG TABLET ONE (02:28)
[2020-03-17] MEDS ORDERED: IBUPROFEN 600 MG TABLET ONE (02:28)
[2020-03-17] MEDS ORDERED: ONDANSETRON 4 MG TAB.RAPDIS ONE (02:28)
[2020-03-17] MEDS ORDERED: ONDANSETRON 4 MG TAB.RAPDIS SL ONE (02:30)
[2020-03-17] MEDS ORDERED: HYDROCODONE/APAP 10/325MG TABLET PO ONE (02:30)
[2020-03-17] MEDS ORDERED: IBUPROFEN 600 MG TABLET PO ONE (02:30)
== END 2020-03-17 03:09 | disposition home or self-care (01) ==
LOC: ER 23:55
DX: M25.562 Pain in left knee (principal); M25.561 Pain in right knee; E66.01 Morbid (severe) obesity due to excess calories; I10 Essential (primary) hypertension; K21.9 Gastro-esophageal reflux disease without esophagitis; E11.9 Type 2 diabetes mellitus without complications; Z68.41 Body mass index [BMI] 40.0-44.9, adult; Z90.49 Acquired absence of other specified parts of digestive tract; Z98.890 Other specified postprocedural states; Z88.5 Allergy status to narcotic agent; Z88.6 Allergy status to analgesic agent; Z79.84 Long term (current) use of oral hypoglycemic drugs; Z79.899 Other long term (current) drug therapy
CPT/HCPCS: 99284; Q0162

== ENCOUNTER 2021-04-14 19:36 | Emergency (ER) | payer BC ==
[~2021-04-14] VITALS: Ht 165.1 cm; Wt 90.7 kg
[2021-04-14 19:36] VITALS: BP 149/91
[2021-04-14] MEDS ORDERED: KETOROLAC TROMETHAMINE INJ 30 MG/ML VIAL IM ONE (21:30)
[2021-04-14] MEDS ORDERED: KETOROLAC TROMETHAMINE INJ 30 MG/ML VIAL ONE (21:57)
[2021-04-14] MEDS ORDERED: IBUP-1955 PO (22:44)
--- NOTE | 2021-04-14 23:13 | NUR ---
Patient discharged to home in stable condition. Written and verbal after care instructions given. Patient verbalizes understanding of instruction.
== END 2021-04-14 23:14 | disposition home or self-care (01) ==
LOC: ER 19:39
DX: S62.665A Nondisplaced fracture of distal phalanx of left ring finger, initial encounter for closed fracture (principal); S60.455A Superficial foreign body of left ring finger, initial encounter; M79.89 Other specified soft tissue disorders; I10 Essential (primary) hypertension; I25.2 Old myocardial infarction; E11.9 Type 2 diabetes mellitus without complications; K21.9 Gastro-esophageal reflux disease without esophagitis; Z90.49 Acquired absence of other specified parts of digestive tract; W01.0XXA Fall on same level from slipping, tripping and stumbling without subsequent striking against object, initial encounter; Y93.89 Activity, other specified; Y92.89 Other specified places as the place of occurrence of the external cause; Y99.8 Other external cause status; Z88.6 Allergy status to analgesic agent; Z88.5 Allergy status to narcotic agent; Z79.1 Long term (current) use of non-steroidal anti-inflammatories (NSAID); Z79.84 Long term (current) use of oral hypoglycemic drugs
CPT/HCPCS: 29125; 73130; 96372; 99284; J1885

== ENCOUNTER 2023-09-09 16:14 | Emergency (ER) | payer BC ==
[~2023-09-09] VITALS: Ht 165.1 cm; Wt 112.0 kg
[~2023-09-09 16:14] MED LIST changes: +IBUP-1955 PO
[2023-09-09 16:22] VITALS: BP 147/82; TEMP 98.2; O2SAT 97
[2023-09-09] MEDS ORDERED: IBUPROFEN 600 MG TABLET ONE (16:56)
[2023-09-09] MEDS ORDERED: IBUPROFEN 200 MG TABLET ONE (16:58)
[2023-09-09] MEDS: IBUPROFEN 400 MG TABLET PO ONE (17:00)
[2023-09-09] MEDS ORDERED: IBUP-1957 PO (19:22)
== END 2023-09-09 19:57 | disposition home or self-care (01) ==
LOC: ER 16:19
DX: S92.352A Displaced fracture of fifth metatarsal bone, left foot, initial encounter for closed fracture (principal); I10 Essential (primary) hypertension; E11.9 Type 2 diabetes mellitus without complications; K21.9 Gastro-esophageal reflux disease without esophagitis; Z90.49 Acquired absence of other specified parts of digestive tract; Z88.8 Allergy status to other drugs, medicaments and biological substances; W01.0XXA Fall on same level from slipping, tripping and stumbling without subsequent striking against object, initial encounter; Y93.89 Activity, other specified; Y92.89 Other specified places as the place of occurrence of the external cause; Y99.8 Other external cause status
CPT/HCPCS: 73630-TC

== ENCOUNTER 2023-12-24 19:42 | Emergency (ER) | payer BC ==
[~2023-12-24] VITALS: Ht 175.3 cm; Wt 106.6 kg
[~2023-12-24 19:42] MED LIST changes: +IBUP-1957 PO
[2023-12-24 21:27] LABS: BASOPHILS % (AUTO) 0.6 % (0.0-2.0); EOSINOPHILS # (AUTO) 0.4 K/uL (0.0-0.7); EOSINOPHILS % (AUTO) 5.5 % (0.0-6.0); HEMATOCRIT 44 % (33-45); HEMOGLOBIN 14.9 g/dL (11.5-14.8); LYMPHOCYTES % (AUTO) 25.6 % (20.0-44.0); MEAN CORPUSCULAR HEMOGLOBIN 30 PG (26.0-33.0); MEAN CORPUSCULAR HGB CONC 34 g/dl (31.0-36.0); MEAN CORPUSCULAR VOLUME 90 fL (82-100); MONOCYTES # (AUTO) 0.6 K/uL (0.1-1.30); MONOCYTES % (AUTO) 7.4 % (2.0-12.0); NEUTROPHILS # (AUTO) 4.8 K/uL (1.8-8.9); NEUTROPHILS % (AUTO) 60.9 % (43.0-81.0); PLATELET COUNT (AUTO) 189 K/uL (150-450); WHITE BLOOD COUNT (AUTO) 7.8 K/uL (4.3-11.0)
[2023-12-24 21:43] LABS: CALCIUM, SERUM 8.7 mg/dL (8.5-10.1); CREATININE 1.1 mg/dL (0.6-1.3); POTASSIUM 3.5 mmol/L (3.5-5.1)
[2023-12-24 21:56] LABS: ALBUMIN 3.5 g/dL (3.4-5.0); BILIRUBIN,TOTAL 0.9 mg/dL (0.2-1.0); TOTAL PROTEIN, SERUM 8.3 g/dL (6.4-8.2)
[2023-12-25 00:08] LABS: APPEARANCE,URINE SLIGHTLY CLOUDY (CLEAR); BILIRUBIN,URINE 2+ (NEGATIVE); BLOOD, URINE NEGATIVE Ery/uL (NEGATIVE); COLOR,URINE YELLOW (YELLOW); KETONES,URINE 1+ mg/dL (NEGATIVE); LEUKOCYTE ESTERASE ,URINE NEGATIVE (NEGATIVE); NITRITE, URINE POSITIVE (NEGATIVE); PROTEIN,URINE 1+ mg/dl (NEGATIVE); UGLUCOSE NEGATIVE (NEGATIVE)
[2023-12-25 00:31] LABS: ADD URINE CULTURE YES; WBC,URINE NONE SEEN /HPF (0-3)
[2023-12-25 00:32] LABS: BACTERIA,URINE 2+ /HPF (None Seen); RBC,URINE 0-2 /HPF (0-2)
[2023-12-25 00:33] LABS: MUCUS,URINE Moderate /LPF (None Seen)
[2023-12-25] MEDS ORDERED: LEVO250T59 PO (00:38)
[2023-12-25 00:50] VITALS: BP 112/65; TEMP 98.6; O2SAT 95
== END 2023-12-25 00:51 | disposition home or self-care (01) ==
LOC: ER 19:45
DX: J06.9 Acute upper respiratory infection, unspecified (principal); H92.02 Otalgia, left ear; E11.9 Type 2 diabetes mellitus without complications; I10 Essential (primary) hypertension; I25.2 Old myocardial infarction; R11.2 Nausea with vomiting, unspecified; K21.9 Gastro-esophageal reflux disease without esophagitis; R06.02 Shortness of breath; Z79.84 Long term (current) use of oral hypoglycemic drugs; Z79.899 Other long term (current) drug therapy; Z86.16 Personal history of COVID-19; Z88.5 Allergy status to narcotic agent; Z88.6 Allergy status to analgesic agent; Z90.49 Acquired absence of other specified parts of digestive tract; Z20.822 Contact with and (suspected) exposure to COVID-19
CPT/HCPCS: 36415; 71045-TC; 80053-TC; 81001; 83880; 84484-TC; 85025-TC; 86403-TC; 87070-TC